=== PATIENT | male | born 1955 | race Caucasian/White ===

== ENCOUNTER → 2016-07-12 | Outpatient (CLI) | payer BC ==
[~2016-07-12] MED LIST: AMLO1CAP46 PO; ASPI-730 PO; CEPH-137 PO; CHLO25TA16 PO; FISH1CAP29 PO; MULT-806 PO; PRAV40TA46 PO; TIMO5DRO21 BOTH EYES; ZOLP-113 PO
--- NOTE | 2016-07-12 10:21 | DI ---
Indication: ITS.REASON: M79.643 BILATERAL HAND PAIN PROCEDURE: HAND BILATERAL 3 VIEW: Encounter: Initial Comparison: None Findings: Right hand: No acute fracture or dislocation seen. Joint space narrowing in the second and third metacarpophalangeal joints. Cystic change within the scaphoid bone. No osseous erosions. Left hand: No acute fracture or dislocation. Joint space narrowing in the second and third metacarpophalangeal joints with hooked osteophytes. The PIP and DIP joint spaces are maintained for the most part. There is mild degenerative change at the index finger DIP joint. No osseous erosions. 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 Left hand: MCP joint narrowing could be due to calcium pyrophosphate arthropathy or hemachromatosis. .
== END ==
LOC: IMA 09:21
PROVIDERS: ATTEND Family Medicine
DX: M25.841 Other specified joint disorders, right hand (principal); M79.641 Pain in right hand; M25.842 Other specified joint disorders, left hand; M79.642 Pain in left hand